=== PATIENT | female | born 1935 | race Caucasian/White ===

== ENCOUNTER 2016-08-31 19:58 | Inpatient (IN) | payer MEDICARE, OTHER ==
[2016-08-31] MEDS ORDERED: SYNTHROID125 MC1 PO (20:24)
[2016-08-31] MEDS ORDERED: VITAMIN D31000 UNI3 PO (20:26)
[2016-08-31 20:33] LABS: BASO % 0.3 % (0-2); EOS % 0.7 % (0-7); EOSINOPHIL ABSOLUTE COUNT 0.1 tho/cmm (0.0-0.7); IMMATURE GRANULOCYTES ABSOLUTE 0.02 tho/cmm (0-0.03); IMMATURE GRANULOCYTES PERCENT 0.3 % (0-0.3); LYMPH % 24.3 % (20-45); LYMPH ABSOLUTE COUNT 1.7 tho/cmm (0.8-4.5); MCH (MEAN CORPUSCULAR HGB) 31.9 pg (28.0-32.0); MCHC MEAN CORPUSCULAR HGB CONC 33.3 % (32.0-36.0); MCV (MEAN CELL VOLUME) 95.7 fl (82.0-96.0); MEAN PLATELET VOLUME 10.2 cmc (9.4-12.4); MONO % 14.3 % (0-12); NEUTROPHIL ABSOLUTE COUNT 4.2 tho/cmm (1.6-8.0); NEUTROPHIL-AUTOMATED 4.2 tho/cmm (1.6-8.0); NEUTROPHILS % 60.1 % (40-80); PLATELET COUNT 170 tho/cmm (150-450); RED BLOOD COUNT 4.39 mil/cmm (4.00-5.20); RED CELL DISTRIBUTION WIDTH 14.1 % (12.4-16.4)
[2016-08-31 20:37] LABS: PROTHROMBIN TIME 11.3 SECONDS (9.0-13.6)
[2016-08-31 20:51] LABS: ANION GAP 14 mmol/L (0-20); BLOOD UREA NITROGEN 13 mg/dl (6-24); CALCIUM 8.2 mg/dl (8.5-10.5); CARBON DIOXIDE-VENOUS 25 mmol/L (22-32); CHLORIDE 101 mmol/l (96-110); CREATININE 0.78 mg/dl (0.50-1.10); GLUCOSE 117 mg/dL (70-110); MAGNESIUM 1.8 mg/dl (1.3-2.6); POTASSIUM 3.5 mmol/L (3.7-5.1); SODIUM 136 mmol/L (135-145); T4 (THYROXINE) 3.6 ug/dl (5.0-12.6); eGFR VALUE FOR BLACK 84 mL/Min
[2016-08-31 21:52] LABS: URINE BILIRUBIN NEGATIVE (NEG); URINE BLOOD NEGATIVE (NEG); URINE GLUCOSE (UA) NEGATIVE (NEG); URINE KETONE NEGATIVE (NEG); URINE LEUKOCYTE ESTERASE NEGATIVE (NEG); URINE NITRITE NEGATIVE (NEG); URINE PROTEIN NEGATIVE (NEG); URINE SPECIFIC GRAVITY 1.005 (1.003-1.030)
[2016-08-31 21:53] LABS: URINE APPEARANCE CLEAR; URINE COLOR YELLOW
[2016-09-01] MEDS ORDERED: OS-CAL 500+D31 EAC1 PO (10:02)
[2016-09-01] MEDS ORDERED: ICAPS TABLET1 EACH PO (10:03)
[2016-09-01] MEDS ORDERED: VITAMIN B-12250 MC2 PO (10:04)
[2016-09-01] MEDS ORDERED: VITAMIN D50000 UNI2 PO (10:05)
[2016-09-01] MEDS ORDERED: FIBER-CAPS625 MG PO (10:06)
[2016-09-01] MEDS ORDERED: VITAMIN B122500 MC1 PO (10:15)
[2016-09-01 16:44] LABS: CKMB 1.1 ng/ml (<3.6)
[2016-09-02 10:20] LABS: ANION GAP 11 mmol/L (0-20); BLOOD UREA NITROGEN 7 mg/dl (6-24); CALCIUM 7.7 mg/dl (8.5-10.5); CARBON DIOXIDE-VENOUS 29 mmol/L (22-32); CHLORIDE 102 mmol/l (96-110); CREATININE 0.67 mg/dl (0.50-1.10); GLUCOSE 85 mg/dL (70-110); POTASSIUM 3.5 mmol/L (3.7-5.1); SODIUM 138 mmol/L (135-145); eGFR VALUE FOR BLACK >90 mL/Min
[2016-09-02] MEDS ORDERED: ELIQUIS5 M1 PO (10:53)
[2016-09-02] MEDS ORDERED: SOTALOL80 M1 PO (10:53)
--- NOTE | 2016-09-02 12:08 | NUR ---
09/02: PT DISCHARGED HOME WITH SPOUSE. CALLED RN BACK TO DISCUSS WANTING A PRESCRIPTION FOR TESSALON PEARLS FOR HER COUGH. SPOKE WITH DR JAMA WHO GAVE A VERBAL ORDER TO CALL IN PRESCRIPTION. ORDER WRITTEN IN CHART, CALLED [facility] ON [address] PER PT REQUEST.
== END 2016-09-02 11:40 | DRG 310 ==
LOC: EDMED 19:58 → EMR2 09-01 06:34 → PCUA 09-01 16:20
PROVIDERS: Emergency Medicine; Nurse Practitioner Family; Physician Assistant Medical; ADMIT Internal Medicine Cardiovascular Disease
DX: I48.91 Unspecified atrial fibrillation (principal); E03.9 Hypothyroidism, unspecified; R05 Cough; R07.9 Chest pain, unspecified; E87.6 Hypokalemia; Z88.2 Allergy status to sulfonamides; Z91.14 Patient's other noncompliance with medication regimen
CPT/HCPCS: J0282; J1160; J1650; J2405; J7030; Q9967